=== PATIENT | male | born 2000 ===

== ENCOUNTER 2018-03-05 11:03 | Emergency (ER) | payer OTHER ==
[2018-03-05 11:35] VITALS: BMI 20.9
--- NOTE | 2018-03-05 11:43 | ED PDOC ---
Arrival/HPI - General Chief Complaint: Abdominal Pain Time Seen by Provider: 03/05/18 11:38 Historian: Patient - History of Present Illness Narrative History of Present Illness (Text): 03/05/18 12:25 17 year old male, with no significant past medical history, presents to the Emergency department complaining of one episode of bloody diarrhea and vomiting since this morning. Patient states stool initially was appeared soft which then lead to complete diarrhea. Patient informs associated epigastric pain and denies similar symptoms in the past. Patient denies any other associated somatic complaints. Patient denies any fevers, chills, headache, dizziness, chest pain, shortness of breath, dyspnea on exertion, cough, urinary symptoms, back pain, neck pain, or any other complaints. Patient denies any abdominal surgeries in th e past. Patient denies any recent changes or diet or any novelty food. Patient denies any recent travel or sick contact. Time/Duration: 1-3 hours Symptom Onset: Gradual Symptom Course: Unchanged Activities at Onset: Light Context: Home Past Medical History - Provider Review Nursing Documentation Reviewed: Yes - Psychiatric Hx Substance Use: No - Anesthesia Hx Anesthesia: No Family/Social History - Physician Review Nursing Documentation Reviewed: Yes Family/Social History: Unknown Family HX Smoking Status: Never Smoked Hx Alcohol Use: No Hx Substance Use: No Allergies/Home Meds Allergies/Adverse Reactions: Allergies No Known Allergies Allergy (Verified 03/05/18 11:38) Home Medications: Home Meds Medication Instructions Recorded Confirmed No Known Home Med 03/05/18 03/05/18 Review of Systems - Physician Review All systems were reviewed & negative as marked: Yes - Review of Systems Constitutional: absent: Fevers Respiratory: absent: SOB, Cough Cardiovascular: absent: Chest Pain Gastrointestinal: Abdominal Pain, Diarrhea, Vomiting. absent: Appetite Changes Genitourinary Male: absent: Dysuria, Urinary Output Changes Musculoskeletal: absent: Back Pain, Neck Pain Skin: absent: Rash Neurological: absent: Headache, Dizziness Physical Exam Vital Signs Reviewed: Yes Vital Signs Temp Pulse Resp BP Pulse Ox 03/05/18 11:35 99.2 F 75 16 117/65 100 03/05/18 11:28 99.2 F 75 16 117/65 100 Temperature: Afebrile Blood Pressure: Normal Pulse: Regular Respiratory Rate: Normal Appearance: Positive for: Well-Appearing, Non-Toxic, Comfortable Pain Distress: None Mental Status: Positive for: Alert and Oriented X 3 - Systems Exam Head: Present: Atraumatic, Normocephalic Pupils: Present: PERRL Extroacular Muscles: Present: EOMI Conjunctiva: Present: Normal Mouth: Present: Moist Mucous Membranes Respiratory/Chest: Present: Clear to Auscultation, Good Air Exchange. No: Respiratory Distress, Accessory Muscle Use Cardiovascular: Present: Regular Rate and Rhythm, Normal S1, S2. No: Murmurs Abdomen: Present: Tenderness (mild epigastric tenderness). 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 No palpable masses on exam. ). No: Hemorrhoids (no external hemmorhoids) Upper Extremity: Present: Normal Inspection. No: Cyanosis, Edema Lower Extremity: Present: Normal Inspection. No: Edema Neurological: Present: GCS=15, CN II-XII Intact, Speech Normal Skin: Present: Warm, Dry, Normal Color. No: Rashes Psychiatric: Present: Alert, Oriented x 3, Normal Insight, Normal Concentration Medical Decision Making ED Course and Treatment: 03/05/18 12:25 Impression: 17 year old male presents to the Emergency department complaining of bloody diarrhea and vomiting. Plan: -- Urinalysis -- Labs -- Reassess and disposition Prior Visits: Notes and results from previous visits were reviewed. Progress Notes: 03/05/18 14:13 Hemoglobin shows to be 13.5 and guaiac negative. Rest of lab results are normal. Patient to be discharged. Patient tolerated PO. WE DISCUSSED, IMMEDIATELY RETURN TO THE ER IF YOU HAVE WORSENING PAIN, VOMITING, FEVERS, OR ANY OTHER CONCERNING, WORSENING, NEW OR CONTINUED SYMPTOMS. OTHERWISE, FOLLOW UP WITH YOUR DOCTOR AND ------ --- IN 1-2 DAYS. CALL [facility] FOR APPOINTMENTS - Lab Interpretations I have reviewed the lab results: Yes - Scribe Statement The provider has reviewed the documentation as recorded by the Leonelibkvng Balderas. All medical record entries made by the Scribe were at my direction and personally dictated by me. I have reviewed the chart and agree that the record accurately reflects my personal performance of the history, physical exam, medical decision making, and the department course for this patient. I have also personally directed, reviewed, and agree with the discharge instructions and disposition. Disposition/Present on Arrival - Present on Arrival Any Indicators Present on Arrival: No History of DVT/PE: No History of Uncontrolled Diabetes: No Urinary Catheter: No History of Decub. Ulcer: No History Surgical Site Infection Following: None - Disposition Have Diagnosis and Disposition been Completed?: Yes Diagnosis: Rectal bleed, Abdominal pain, Vomiting Disposition: HOME/ ROUTINE Disposition Time: 14:40 Patient Plan: Discharge Patient Problems: Current Active Problems Problem Status Onset Abdominal pain Acute Rectal bleed Acute Vomiting Acute Condition: STABLE Discharge Instructions (ExitCare): Bloody Stools, Adult (DC), Acute Abdomen (Belly Pain), Adult (DC), Nausea and Vomiting, Adult (DC) Print Language: BELARUSIAN Referrals: [facility] [Outside] - Follow up with primary [facility] [place] [Outside] - Follow up with primary Berenice Ruggiero MD [Medical Doctor] - Follow up with primary Forms: [employer] (Korean)
[2018-03-05 12:45] LABS: BASO # 0.01 K/mm3 (0.0-2.0); BASO % 0.2 % (0.0-3.0); EOS # 0.1 (0.0-0.7); EOS % 1.8 % (1.5-5.0); GRAN # 2.85 (1.4-6.5); GRAN % 57.3 % (50.0-68.0); HEMOGLOBIN 13.5 g/dL (14.0-18.0); LYMPH # 1.6 (1.2-3.4); LYMPH % 31.6 % (22.0-35.0); MEAN CELL VOLUME 86.7 fl (80.0-105.0); MEAN CORPUSCULAR HEMOGLOBIN 28.1 pg (25.0-35.0); MEAN CORPUSCULAR HGB CONC 32.5 g/dl (31.0-37.0); MONO # 0.5 (0.1-0.6); MONO % 9.1 % (1.0-6.0); RBC 4.8 10^6/uL (3.5-6.1); RED CELL DISTRIBUTION WIDTH 12.2 % (11.5-14.5)
[2018-03-05 12:56] LABS: ALB/GLOB RATIO 1.4 (1.1-1.8); ALBUMIN 4.5 g/dL (3.0-4.8); ALT/SGPT 24 U/L (7-56); AST/SGOT 27 U/L (17-59); BLOOD UREA NITROGEN 20 mg/dL (7-21); CALCIUM 9.4 mg/dL (8.4-10.5); GFR NON-AFRICAN AMERICAN > 60; LIPASE 45 U/L (23-300)
[2018-03-05 15:03] VITALS: BP 123/77; PULSE 72; RESP 18; TEMP 98.2; O2SAT 99
[2018-03-06 00:59] LABS: URINE BILIRUBIN NEGATIVE (NEGATIVE); URINE BLOOD NEGATIVE (NEGATIVE); URINE GLUCOSE (UA) NEGATIVE (NEGATIVE); URINE LEUKOCYTE ESTERASE NEGATIVE Leu/uL (NEGATIVE); URINE PROTEIN NEGATIVE mg/dL (<30 mg/dL); URINE UROBILINOGEN 0.2 E.U./dL (<1 E.U./dL)
[2018-03-06 01:04] LABS: URINE APPEARANCE CLEAR (CLEAR); URINE COLOR YELLOW (YELLOW)
== END 2018-03-05 15:02 | disposition home or self-care (01) ==
LOC: ED 11:03
DX: R11.10 Vomiting, unspecified (principal); R10.9 Unspecified abdominal pain; K62.5 Hemorrhage of anus and rectum